=== PATIENT | male | born 1950 | race Caucasian/White ===

== ENCOUNTER 2019-02-02 07:30 | Inpatient (IN) | payer BC, OTHER ==
--- NOTE | 2019-02-01 12:39 | HP ---
HISTORY AND PHYSICAL: DATE OF ADMISSION/SURGERY: 02/09/19 DATE OF OFFICE VISIT: 01/29/19 SURGEON: Sonia Boyer MD* (dictated by RANDI Olvera). PROCEDURE: Left total knee arthroplasty. CHIEF COMPLAINT: Left knee pain. HISTORY OF PRESENT ILLNESS: Mr. Higuera is a 68-year-old gentleman with continued complaints of left knee pain. He has failed conservative treatment and elected to proceed with a left total knee arthroplasty. PAST MEDICAL HISTORY: Gout and hypertension. PAST SURGICAL HISTORY: ORIF of the right ankle. CURRENT MEDICATIONS: 1. Alba D. 2. Colchicine. 3. Meloxicam. 4. Amlodipine 5 mg a day. 5. Flonase daily. ALLERGIES: No known drug allergies. FAMILY HISTORY: Coronary artery disease, cancer and stroke. SOCIAL HISTORY: This 68-year-old gentleman lives with his . He does not smoke or use drugs, uses occasional alcohol. REVIEW OF SYSTEMS: A complete 14-point review of systems was reviewed with the patient, is all negative or noncontributory. PHYSICAL EXAMINATION GENERAL: He is well developed, well nourished, in no acute distress. VITAL SIGNS: He stands 73 inches tall, weighs 237 pounds. His blood pressure is 144/83. His heart rate is 72. HEENT: Normocephalic, atraumatic. NECK: Supple. No palpable lymph nodes. PULMONARY: Lungs are clear to auscultation bilaterally. CARDIAC: Regular rate and rhythm. Strong S1, S2. ABDOMEN: Soft, nontender, nondistended. NEUROLOGIC: He is alert and oriented x3. MUSCULOSKELETAL: Left lower extremity: The skin is intact. There are no open wounds or abrasions. There is a moderate effusion of the left knee, some tenderness along the medial and lateral joint line. He walks with an antalgic- type gait. He is able to dorsiflex and plantar flex and has intact sensation and 2+ dorsalis pedis pulse. ASSESSMENT AND PLAN: Mr. Higuera is a 68-year-old gentleman with end-stage osteoarthritis of the left knee. He has failed conservative treatment and elected to proceed with left total knee arthroplasty. The surgery is scheduled for 02/09/[address] Boyer discussed the risks and benefits of the surgery at today's visit and all of his questions were answered. He will follow up with Dr. Boyer 2 weeks after the surgery. RANDI OLVERA [id number]/CPS #: [id number] DEB
[2019-02-08] MEDS ORDERED: Buffered Lidocaine 1% SYRIN* 1 ML/SYRINGE INTRADERM ONE (13:43)
[2019-02-09] MEDS ORDERED: Tranexamic Acid 1,000 MG in NS 0.9% 50 ML* (outpatient use) IV SCH ×2
[2019-02-09] MEDS ORDERED: Famotidine IV* 10 MG/ML 2 ML (20 mg) IV ONE (06:00)
[2019-02-09] MEDS ORDERED: Gabapentin CAP(*) 300 MG PO ONE (06:00)
[2019-02-09] MEDS ORDERED: Lactated Ringers 1000 ML Bag* 1,000 ML IV SCH (06:00)
[2019-02-09] MEDS ORDERED: ceFAZolin 2 GM PREMIX in ORs 2 GM/50 ML BAG IVPB ONE (09:08)
[2019-02-09] MEDS ORDERED: Gabapentin CAP(*) 300 MG ONE (09:08)
[2019-02-09] MEDS ORDERED: Famotidine IV* 10 MG/ML 2 ML (20 mg) ONE (09:09)
[2019-02-09] MEDS ORDERED: Buffered Lidocaine 1% SYRIN* 1 ML/SYRINGE INTRADERM ONE (09:09)
[2019-02-09] MEDS ORDERED: Midazolam* 1 MG/ML 5 ML VIAL (5 MG) ONE (09:40)
[2019-02-09] MEDS ORDERED: fentaNYL* 50 MCG/ML 2 ML VIAL (100 MCG VIAL) ONE (09:40)
[2019-02-09] MEDS ORDERED: ROPIVACAINE 5 MG/ML 30 ML BTL (0.5%) ONE ×2 (10:05→10:26)
[2019-02-09] MEDS ORDERED: Lidocaine 1%* 5 ML VIAL ONE (10:05)
[2019-02-09] MEDS ORDERED: KETAMINE HCL* 50 MG/ML 10 ML VIAL ONE (12:15)
[2019-02-09] MEDS ORDERED: Ketorolac INJ* 30 MG/ML 1 ML VIAL ONE (12:24)
[2019-02-09] MEDS ORDERED: Ondansetron INJ* 2 MG/ML VIAL ONE (12:24)
[2019-02-09] MEDS ORDERED: Propofol* 10 MG/ML 20 ML BTL ONE ×2 (12:24→13:35)
[2019-02-09] MEDS ORDERED: DiMENhydriNATE IV* 50 MG/ML VIAL ONE (12:24)
[2019-02-09] MEDS ORDERED: Lidocaine 2% PF * 5 ML VIAL ONE (12:25)
[2019-02-09] MEDS ORDERED: Midazolam* 1 MG/ML 2 ML VIAL (2 MG) ONE (13:09)
[2019-02-09] MEDS ORDERED: HYDROmorphone INJ1* 1 MG/ML SYRINGE IV PRN (13:23)
[2019-02-09] MEDS ORDERED: DiMENhydriNATE IV* 50 MG/ML VIAL IV PUSH PRN (13:23)
[2019-02-09] MEDS ORDERED: oxyCODONE TAB* 5 MG TAB PO PRN (13:23)
[2019-02-09] MEDS ORDERED: Acetaminophen IV 1GM/100ML * 1,000 MG/100 ML VIAL IVPB ONE (13:23)
[2019-02-09] MEDS ORDERED: Naloxone* 0.4 MG/ML 1 ML VIAL IV PRN (13:23)
[2019-02-09] MEDS ORDERED: Gabapentin CAP(*) 100 MG PO ONE (13:24)
[2019-02-09] MEDS ORDERED: hydrALAZINE IV* 20 MG/ML VIAL ONE (13:28)
[2019-02-09] MEDS ORDERED: HYDROmorphone INJ1* 1 MG/ML SYRINGE ONE (13:42)
--- NOTE | 2019-02-09 14:30 | OP ---
Operative Report - Blank - Operative Report Date of Operation: 02/09/19 Note: PRADIP DANIELS 1950 Date of Surgery: 02/09/19 Sonia Boyer MD [employer] Advisor: Reno BRYAN did help throughout the procedure with preparation of the knee, wound retraction, manipulation of the knee, and wound closure. Anesthesiologist: Edward Lpoez MD Anesthesia Type: Spinal Preoperative Diagnosis: Left severe degenerative osteoarthritis of the knee Postoperative Diagnosis: As above Procedure Performed: Left Total Knee Arthroplasty Tourniquet time: 46 minutes Complications: None Specimen: Bone and cartilage from the left knee joint sent to pathology. Hardware Used: Cemented Kapadia and Nephew total knee hardware was used - For the femur a size 8 left oxinium legion posterior stabilized femoral component, for the tibia a size 7 left luci II tibial baseplate, for the insert a size 9mm 7 -8 posterior stabilized articular polyethylene insert, and for the patella a size 38 3-peg all poly patella. Brief History/Indication: PRADIP DANIELS was known in clinic and had a history of severe left knee pain and swelling. He failed conservative treatment with anti-inflammatories, pain pills, intra-articular injections and physical therapy. He elected to undergo left total knee arthroplasty due to continued pain and decreased quality of life. Radiographs showed severe end stage osteoarthritis of the knee with bone on bone contact. Informed consent was obtained from the patient. He understood the risks of surgery included but were not limited to: bleeding, infection, damage to nearby structures, intraoperative fracture, nerve palsy, failure of the hardware, early loosening, knee stiffness or loss of motion, anesthesia complications, stroke, heart attack , blood clot and . He wished to proceed. Intra-Operative Findings: Intraoperatively the patient was noted to have severe loss of cartilage in all 3 compartments of the knee. Description of the Procedure: PRADIP DANIELS was identified in the preanesthesia unit. His left knee was marked as the correct operative side. Informed consent was signed and placed in the chart. The patient was taken to the operating room and placed under anesthesia without complication. A andino catheter was placed. A tourniquet was placed on the left thigh. The left lower extremity was prepped and draped in the usual sterile fashion. Preoperative time-out was made to correctly identify the patient, side and site. Appropriate intraoperative antibiotics were given within one hour of incision. Tourniquet was inflated. A midline incision was made and carried sharply down to the extensor mechanism. A new 10 blade was used to make a standard medial parapatellar arthrotomy. The patella was subluxed laterally. Electrocautery was used to dissect soft tissue off the superomedial tibia to the midsagittal plane. The knee was flexed up. The anterior horn of the lateral meniscus and the ACL were sharply incised. A drill was used to enter the distal femur. The intramedullary distal femoral cutting guide was pinned on the distal femur. The oscillating saw was used to make the distal femoral cut. The external rotation guide was pinned on the distal femur and the distal femur was sized to a size 8. The size 8 multi-cutting jig was pinned on the distal femur. The oscillating saw was used to make the appropriate 4 chamfer cuts. Next the PCL was completely released. The extramedullary tibial cutting guide was pinned on the proximal tibia and the oscillating saw was used to make the proximal tibial cut perpendicular to the mechanical axis of the tibia. The bone was carefully removed. The knee was brought out into full extension. The spacer block was placed and had excellent fit with the knee in full extension. The medial and lateral ligaments were well balanced. The flexion and extension gaps were well balanced. The knee was flexed up. Lamina horse show judge was placed both medially and laterally. Any remaining meniscus was removed with electrocautery. Curved osteotome was used to remove any posterior osteophytes. The tibial tray and drop hanna were placed and confirmed a satisfactory tibial cut. The size 8 left femoral trial was impacted onto the distal femur. This trial had excellent fit and stability. The box for the posterior stabilized implant was prepared using a box cut osteotome and a reamer. Next a tibial tray trial and 9 mm insert trial was placed. The knee was taken through a range of motion and had full extension to 130 degrees of flexion. Patellofemoral tracking was satisfactory. The patella was inverted and sized to a size 38. Three peg holes were drilled through the size 38 drill guide. The trial patella was placed and the knee was taken through a range of motion. There was satisfactory patellofemoral tracking. All trials were removed. The tibia was subluxed anteriorly and sized to a size 7. The proximal tibial was prepared with a size 7 keel punch. All bony cut surfaces were irrigated with sterile saline and dried. Final implants were cemented into place starting with the tibia, followed by the femur, and last the patella. A 9 mm insert trial was placed and the knee was brought into full extension. Tourniquet was turned down and the knee was copiously irrigated with sterile saline. Electrocautery was used to obtain meticulous hemostasis. Once the cement had fully cured, the insert trial was removed. Any excess cement was removed from around the hardware and capsule. Final insert chosen was a 9 mm posterior stabilized Luci II articular insert size 7-8. Stability of the insert was checked and noted to be stable. The extensor mechanism was closed using number 1 vicryls. The rest of the incision was closed in a layered fashion using 0 and 2-0 vicryls. The skin was closed using 3-0 nylon suture. Sterile xeroform, 4x4s and webril were used to cover the incision. Ignacio wrap and cold pack were used to cover the dressings. The patients anesthesia was reversed without difficulty. He was taken to the PACU in stable condition. Intended weight-bearing will be as tolerated.
[2019-02-09] MEDS ORDERED: diPHENhydraMINE IV* 50 MG/ML 1 ml VIAL (BENADRYL) IV PRN (14:41)
[2019-02-09] MEDS ORDERED: oxyCODONE/Acetamin 5/325 MG* TAB PO PRN (14:41)
[2019-02-09] MEDS ORDERED: Acetaminophen TAB* 325 MG PO PRN (14:41)
[2019-02-09] MEDS ORDERED: Bisacodyl SUPP* 10 MG SUPP PR PRN (14:41)
[2019-02-09] MEDS ORDERED: Cyclobenzaprine TAB* 10 MG PO PRN (14:41)
[2019-02-09] MEDS ORDERED: Magnesium Hydroxide LIQ* 30 ML UDC PO PRN (14:41)
[2019-02-09] MEDS ORDERED: Morphine INJ* 2 MG/ML 1 ML SYRINGE (TWO MG - NEW SYRINGE VERSION) IV PRN (14:41)
[2019-02-09] MEDS: oxyCODONE/Acetamin 5/325 MG* TAB PO PRN ×2 (19:20→23:25)
[2019-02-09] MEDS: Docusate CAP* 100 MG PO SCH (19:23)
[2019-02-09] MEDS: Magnesium Hydroxide LIQ* 30 ML UDC PO SCH (19:28)
[2019-02-09] MEDS: ceFAZolin 1 GM ADVAN(*) 1 GM in NS 0.9% 50 ML* 50 ML IVPB SCH (19:30)
--- NOTE | 2019-02-09 20:54 | HP ---
CC: Dr. Gina Cervantes * HISTORY AND PHYSICAL: DATE OF ADMISSION: 02/09/19 DATE OF CONSULT: 02/09/19 PRIMARY CARE PROVIDER: Gina Cervantes MD. REQUESTING PHYSICIAN IN CONSULT: Dr. Sonia Boyer. ATTENDING PHYSICIAN: Dr. Arreaga * (dictated by Mono May NP). REASON FOR CONSULT: Co-medical management of hypertension. HISTORY OF PRESENT ILLNESS/HOSPITAL COURSE: I will refer you to Dr. Boyer's history and physical dictated on 02/01/19 for complete details, but in short, Mr. Higuera is a 77-year-old male with a past medical history of hypertension, systolic murmur, BPH, gout, osteoarthritis who presented to [facility] [place] on 02/09/19 for an elective left total knee replacement after failing conservative therapy. PAST MEDICAL HISTORY: 1. Systolic murmur. 2. Hypertension. 3. Osteoarthritis. 4. BPH. 5. Gout. PAST SURGICAL HISTORY: 1. Right ankle repair, 2006. HOME MEDICATIONS: 1. Amlodipine 5 mg p.o. q.a.m. 2. [facility] Allergy Relief 1 tab p.o. q.a.m. p.r.n. 3. Ibuprofen 400 mg p.o. daily p.r.n. 4. Flonase 2 spray both nares q.a.m. 5. Colchicine 1 tab p.o. b.i.d. p.r.n. ALLERGIES: LISINOPRIL. FAMILY HISTORY: Father at age 83 due to cancer. He also had a history of asthma and then diabetes. Mother is alive at age 97, has a history of heart disease. Brother is alive at age 65 and has had a stroke and abuses alcohol. Sister is alive at age 70 and has no medical conditions. SOCIAL HISTORY: The patient does not smoke. The patient does not use drugs. The patient reports daily alcohol use of 2 gin and tonics at night. The patient lives with his . The patient is independent with his ADLs. His surrogate decision maker will be his , Cinthya Devine ([phone]), in the event he cannot make decisions for herself. REVIEW OF SYSTEMS: The patient reports mild left knee pain and rates it at a 2/ 10. The patient reports slight lightheadedness. Otherwise, 14-point of review of systems was completed and all others were negative. PHYSICAL EXAMINATION GENERAL: Mr. Javier is a 68-year-old male who is sitting in a recliner. He appears stated age. He appears to be in no acute distress. VITAL SIGNS: Temp 97.5, HR 65, RR 16, O2 saturation is 97% on room air, BP is 132/74. HEENT: EOMs intact. PERRLA. Oral mucosa is moist without lesions. Posterior pharynx is clear. NECK: Full range of motion, no lymphadenopathy. RESPIRATORY: Symmetrical chest expansion. No accessory muscle use. Lungs are clear to auscultation. No rhonchi, wheezes, or rales. CV: Regular rate and rhythm. S1, S2 present. Systolic murmur noted. No rubs or gallops. EXTREMITIES: Skin is warm and smooth bilaterally. No edema. No clubbing or cyanosis. Pedal pulses are 2+ bilaterally. MUSCULOSKELETAL: The patient reports pain in the left knee. Otherwise, no pain or deformity. ABDOMEN: Soft, nontender to palpation. Bowel sounds are normoactive. NEURO: Awake, alert, and oriented x4. Motor strength is 5/5 in upper and lower extremities. SKIN: Grossly intact without lesions. DIAGNOSTIC STUDIES/LAB DATA: CBC obtained on 01/29/19: WBC 9.1, hemoglobin 16.6, hematocrit 48, and platelets 232. Chemistry obtained on 01/29/19: Sodium 139, potassium 4.6, chloride 102, carbon dioxide 31, BUN 11, creatinine 0.79. ASSESSMENT AND PLAN: Mr. Higuera is a 68-year-old male with a past medical history significant for a systolic murmur, hypertension, osteoarthritis, BPH, gout who presented to the [facility] [facility] for elective left total knee replacement. He will be placed on short stay surgical. 1. Status post left total knee replacement: Patient is postop day 0. Management per ortho. Pain medication, bowel regimen, and DVT prophylaxis has been ordered by the ortho team. 2. Systolic murmur: This is noted in patient's preop exam. It was also noted on examination. Patient is asymptomatic. I would encourage patient to follow up with his primary care and have routine echos as recommended. 3. Hypertension. Patient is on amlodipine 5 mg p.o. q.a.m., which he took this morning prior to surgery. Nurse, Cristina RN, does note that patient had a syncopal episode while working with PT this afternoon, but recovered quickly and vital signs remained stable. Given this, I will hold patient's amlodipine tomorrow. You can restart it as you deem necessary. 4. Osteoarthritis: Patient is status post left total knee replacement. Pain management has been ordered by ortho team. 5. BPH: Patient is not on any medications for his BPH. I would encourage patient to follow up with his primary care. I would also monitor patient for urinary retention once his Simmons is removed tomorrow. 6. Gout. Patient has no signs or symptoms of gout. Patient can continue his colchicine p.r.n. after discharge. 7. FEN: Diet has been ordered by the ortho team. 8. Code status: Patient is a full code. 9. DVT prophylaxis: Patient has been placed on apixaban by the ortho team. TIME SPENT: Approximately 35 minutes were spent on this consultation, greater than half the time was spent with the patient obtaining my history and performing physical exam and reviewing my plan of care. This case has been reviewed with my attending, Dr. Arreaga, who is in agreement with my plan. Thank you very much for allowing us to participate in the care of this patient. We will follow along with you. Reviewed by MONO MAY NP 02/15/19 @ 1936 [id number]/CPS #: [id number] DEB
[2019-02-09] MEDS: oxyCODONE TAB* 5 MG TAB PO PRN (22:07)
[2019-02-10] MEDS: Lactated Ringers 1000 ML Bag* 1,000 ML IV SCH ×2 (01:55→12:09)
[2019-02-10] MEDS: oxyCODONE TAB* 5 MG TAB PO PRN ×2 (01:59→06:14)
[2019-02-10] MEDS: oxyCODONE/Acetamin 5/325 MG* TAB PO PRN ×4 (04:11→17:43)
[2019-02-10] MEDS: ceFAZolin 1 GM ADVAN(*) 1 GM in NS 0.9% 50 ML* 50 ML IVPB SCH ×2 (04:12→12:09)
[2019-02-10 05:10] LABS: Hematocrit 41 % (36-46); Hemoglobin 14.2 g/dL (14.0-18.0); Platelet Count 188 10^3/uL (150-450)
[2019-02-10 05:30] LABS: BUN/Creatinine Ratio 14.3 (8-20); Calcium 8.8 mg/dL (8.6-10.3); EGFR African American 136.1 (>60); EGFR Non-African American 112.5 (>60)
[2019-02-10] MEDS ORDERED: Morphine TAB Extended Release (*) 30 MG TAB.ER PO SCH (08:00)
[2019-02-10] MEDS: Vitamin THERAPEUTIC TAB PO SCH (08:37)
[2019-02-10] MEDS: Apixaban* 2.5 MG TAB PO SCH ×2 (08:37→21:12)
[2019-02-10] MEDS: Docusate CAP* 100 MG PO SCH ×2 (08:37→21:12)
[2019-02-10] MEDS: Magnesium Hydroxide LIQ* 30 ML UDC PO SCH ×2 (08:37→21:12)
[2019-02-10] MEDS: Ondansetron INJ* 2 MG/ML VIAL IV PRN ×2 (08:46→18:41)
[2019-02-10] MEDS ORDERED: amLODIPine TAB* 5 MG PO SCH (09:00)
--- NOTE | 2019-02-10 09:34 | PN ---
Subjective Date of Service: 02/10/19 Interval History: Patient reports he developed nausea shortly after finishing his breakfast this morning. He received zofran and his nausea is feeling improved. Denies abd pain , emesis, and diarrhea. He reports he did not sleep well because of knee pain and therefore is feeling quite tired this morning. He has not gotten up to stand yet today. Of note, he reportedly experienced a syncopal event upon standing yesterday. Denies dizziness, headache, chest pain, visual changes, SOB. Objective Active Medications: Acetaminophen (Tylenol Tab*) 650 mg PO Q8H PRN PRN Reason: PAIN OR TEMPERATURE Apixaban (Eliquis*) 2.5 mg PO BID [facility] Last Admin: 02/10/19 08:37 Dose: 2.5 mg Bisacodyl (Dulcolax Supp*) 10 mg LA DAILY PRN PRN Reason: constipation Cyclobenzaprine HCl (Flexeril Tab*) 5 mg PO TID PRN PRN Reason: SPASMS Last Admin: 02/10/19 01:59 Dose: 5 mg Diphenhydramine HCl (Benadryl Iv*) 25 mg IV Q6H PRN PRN Reason: itching Docusate Sodium (Colace Cap*) 100 mg PO BID [facility] Last Admin: 02/10/19 08:37 Dose: 100 mg Cefazolin Sodium 1 gm/ Sodium (Chloride) 50 mls @ 200 mls/hr IVPB Q8H [facility] Stop: 02/10/19 12:14 Last Admin: 02/10/19 04:12 Dose: 200 mls/hr Lactated Ringer's (Lactated Ringers 1000 Ml Bag*) 1,000 mls @ 100 mls/hr IV PER RATE [facility] Last Admin: 02/10/19 01:55 Dose: 100 mls/hr Lactulose (Lactulose*) 30 ml PO Q6H PRN PRN Reason: constipation Magnesium Hydroxide (Milk Of Magnesia Liq*) 30 ml PO BID [facility] Last Admin: 02/10/19 08:37 Dose: 30 ml Magnesium Hydroxide (Milk Of Magnesia Liq*) 30 ml PO Q6H PRN PRN Reason: constipation Morphine Sulfate (Morphine Inj (Syringe))*) 2 mg IV Q2H PRN PRN Reason: PAIN Morphine Sulfate (Ms Contin(*)) 15 mg PO Q12H [facility] Multivitamins (Theragran Tab*) 1 tab PO DAILY JOE Last Admin: 02/10/19 08:37 Dose: 1 tab Ondansetron HCl (Zofran Inj*) 4 mg IV Q6H PRN PRN Reason: nausea Last Admin: 02/10/19 08:46 Dose: 4 mg Oxycodone HCl (Roxycodone Tab*) 10 mg PO Q4H PRN PRN Reason: PAIN - SEVERE Last Admin: 02/10/19 06:14 Dose: 10 mg Oxycodone/Acetaminophen (Percocet 5/325 Tab*) 1 tab PO Q4H PRN PRN Reason: PAIN Oxycodone/Acetaminophen (Percocet 5/325 Tab*) 2 tab PO Q4H PRN PRN Reason: PAIN Last Admin: 02/10/19 08:37 Dose: 2 tab Vital Signs - 8 hr 02/10/19 02/10/19 02/10/19 01:59 03:02 04:11 Temperature 99.1 F Pulse Rate 80 Respiratory 18 16 18 Rate Blood Pressure 156/66 (mmHg) O2 Sat by Pulse 94 Oximetry 02/10/19 02/10/19 02/10/19 06:14 08:37 08:38 Temperature Pulse Rate Respiratory 18 18 18 Rate Blood Pressure (mmHg) O2 Sat by Pulse Oximetry 02/10/19 09:12 Temperature 99.3 F Pulse Rate 93 Respiratory 17 Rate Blood Pressure 154/83 (mmHg) O2 Sat by Pulse 94 Oximetry Oxygen Devices in Use Now: None Appearance: White male, appears stated age, laying upright in hospital bed, appearing in NAD Eyes: No Scleral Icterus, PERRLA Ears/Nose/Mouth/Throat: Mucous Membranes Moist Neck: NL Appearance and Movements; NL JVP Respiratory: Symmetrical Chest Expansion and Respiratory Effort, - - Very minimal crackles in bilateral lung bases Cardiovascular: RRR, - - Grade II systolic murmur Abdominal: - - Abdomen soft, nontender, nondistended; no guarding or masses Extremities: No Edema, No Clubbing, Cyanosis Skin: No Rash or Ulcers, - - Skin warm, dry, intact Neurological: Alert and Oriented x 3, NL Muscle Strength and Tone Result Diagrams: 02/10/19 05:00 02/10/19 05:00 Assess/Plan/Problems-Billing Assessment: 68 yo male PMHx HTN, systolic murmur, BPH, gout is s/p L TKA. Hospital medicine consulted for comanagement of chronic medical conditions. - Patient Problems (1) Hypertension Code(s): I10 - ESSENTIAL (PRIMARY) HYPERTENSION SNOMED Code(s): 83823083 Comment: -home amlodipine previously held because of syncopal event with standing yesterday, likely orthostatic hypotension -will restart amlodipine with holding parameters for SBP<160 -continue to monitor, SBP has been in low 150s (2) Nausea Code(s): R11.0 - NAUSEA SNOMED Code(s): 907102313 Comment: -pt reported nausea this morning, improved with zofran -continue prn zofran (3) Systolic murmur Code(s): R01.1 - CARDIAC MURMUR, UNSPECIFIED SNOMED Code(s): 98054141 Comment: -known systolic murmur prior to surgery, recommended follow up with PCP (4) S/P knee replacement Code(s): Z96.659 - PRESENCE OF UNSPECIFIED ARTIFICIAL KNEE JOINT SNOMED Code(s ): 870976331 Comment: -mgmt per orthopedic surgery (5) DVT prophylaxis Code(s): DDX7824 - SNOMED Code(s): 500341338 Comment: -per orthopedic surgery, on eliquis
[2019-02-10] MEDS: Morphine TAB Extended Release (*) 15 MG TAB.ER PO SCH ×2 (10:12→20:13)
--- NOTE | 2019-02-10 10:58 | PN ---
Progress Note - Progress Note Date of Service: 02/10/19 SOAP: Subjective: []Pt seen and examined OOB in chair. Denies CP, SOB, nausea. He has mild dizziness with movement. He had a syncopal episode yesterday after change of position. Knee pain is well controlled Objective: []General: NAD, Appears well LLE: Left knee dressing CDI, thigh is soft, DF/PF intact, DP2+, sensation intact to light touch distally Calves supple and nontender without erythema, edema or palpable cords Assessment: []POD 1 sp left total knee replacement Plan: []WBAT PT/OT Eliquis 2.5 mg po BID x 30 days post op DC home tomorrow morning Vital Signs Temp 99.3 F 02/10/19 09:12 Pulse 93 02/10/19 09:12 Resp 18 02/10/19 10:12 BP 154/83 02/10/19 09:12 Pulse Ox 94 02/10/19 09:12 Intake & Output 02/09/19 02/10/19 02/10/19 18:59 06:59 18:59 Intake Total 1850 1874 320 Output Total 400 1050 Balance 1450 824 320 Weight 241 lb 12.8 oz Intake: IV Fluids 1850 980 LR 1800 980 NS 50ML, Cefazolin 2G 50 IVPB 54 ABX - CEFAZOLIN 54 Oral 840 320 Output: Simmons 400 1050 Other: # Bowel Movements 0 Laboratory Last Values Hgb 14.2 g/dL (14.0-18.0) 02/10/19 05:00 Hct 41 % (36-46) 02/10/19 05:00 Plt Count 188 10^3/uL (150-450) 02/10/19 05:00 MPV 8.0 fL (7.4-10.4) 02/10/19 05:00 Sodium 132 mmol/L (135-145) L 02/10/19 05:00 Potassium 4.0 mmol/L (3.5-5.0) 02/10/19 05:00 Chloride 99 mmol/L (101-111) L 02/10/19 05:00 Carbon Dioxide 25 mmol/L (22-32) 02/10/19 05:00 Anion Gap 8 mmol/L (2-11) 02/10/19 05:00 BUN 10 mg/dL (6-24) 02/10/19 05:00 Creatinine 0.70 mg/dL (0.67-1.17) 02/10/19 05:00 Est GFR ( Amer) 136.1 (>60) 02/10/19 05:00 Est GFR (Non-Af Amer) 112.5 (>60) 02/10/19 05:00 BUN/Creatinine Ratio 14.3 (8-20) 02/10/19 05:00 Glucose 158 mg/dL (70-100) H 02/10/19 05:00 Calcium 8.8 mg/dL (8.6-10.3) 02/10/19 05:00
[2019-02-10] MEDS: amLODIPine TAB* 5 MG PO SCH (12:09)
[2019-02-11] MEDS: oxyCODONE/Acetamin 5/325 MG* TAB PO PRN (00:06)
[2019-02-11] MEDS: oxyCODONE TAB* 5 MG TAB PO PRN ×4 (03:50→16:14)
[2019-02-11] MEDS: Ondansetron INJ* 2 MG/ML VIAL IV PRN (03:50)
[2019-02-11 05:57] LABS: Hematocrit 40 % (42-52); Hemoglobin 13.8 g/dL (14.0-18.0); Mean Platelet Volume 8.1 fL (7.4-10.4); Platelet Count 183 10^3/uL (150-450)
[2019-02-11] MEDS: Morphine TAB Extended Release (*) 15 MG TAB.ER PO SCH (07:19)
[2019-02-11] MEDS ORDERED: Scopolamine 1.5 mg* PATCH TRANSDERM ONE (08:00)
[2019-02-11] MEDS: Magnesium Hydroxide LIQ* 30 ML UDC PO SCH (08:25)
[2019-02-11] MEDS: Apixaban* 2.5 MG TAB PO SCH (08:26)
[2019-02-11] MEDS: amLODIPine TAB* 5 MG PO SCH (08:26)
[2019-02-11] MEDS: Vitamin THERAPEUTIC TAB PO SCH (08:26)
[2019-02-11] MEDS: Docusate CAP* 100 MG PO SCH (08:26)
[2019-02-11] MEDS ORDERED: amLODIPine TAB* 5 MG PO SCH (09:00)
--- NOTE | 2019-02-11 10:40 | DS ---
Orthopedic Discharge Summary - Discharge Summary Discharge to home in stable condition 02/11/19 with homecare Date of Admission:02/09/19 Date of Discharge: 02/11/19 Date of Surgery: 02/09/19 Attending Orthopedic Provider: Dr Boyer Pre-operative Diagnosis: left knee osteoarthritis Operative Procedure: left total knee arthroplasty Condition of Patient: stable History: PRADIP DANIELS is a 68 year old M with years of increasingly severe left knee pain. Patient has failed conservative management and has elected to undergo a left total knee replacement Hospital Course: PRADIP was admitted to [facility] on 02/09/19. Patient underwent a left total knee replacement without complication followed by a brief recovery in PACU and transfer to the Short Stay Surgical Unit in stable condition. POD 0 he had a syncopal episode without injury. Our hospitalist service, physical therapy and occupational therapy also participated in this patients care. Post-op day 1: patient was alert and in no acute distress. Dressing was clean, dry and intact. Operative extremity dorsiflexion and plantarflexion intact, sensation intact to light touch distally , DP2+. Post-op day two: dressing was changed, incision was clean, dry and intact. Patient was deemed to be medically and orthopedically stable for discharge home. Physical therapy goals were met. Of note his BP should be followed by home nursing post op as he did have elevated BP that was trending towards normal by the time of discharge, this could well be attributed to his amlodipine being held due to his syncopal episode. If elevated BP continues he should follow up with his PCP this week. Home Medications Medication Instructions Recorded Confirmed Type Fluticasone NASAL SPRAY 50MCG* 2 spray BOTH NARES QAM 01/29/19 02/09/19 History [Flonase NASAL SPRAY 50MCG*] [facility] Allergy Relief 1 tab PO QAM PRN 01/29/19 02/09/19 History amLODIPine TAB* [Norvasc 5 mg TAB*] 5 mg PO QAM 01/29/19 02/09/19 History Acetaminophen TAB* [Tylenol TAB*] 650 mg PO Q8H PRN tab 02/11/19 Rx Apixaban* [Eliquis*] 2.5 mg PO BID #60 tab 02/11/19 Rx Docusate CAP* [Colace Cap*] 100 mg PO BID #90 cap 02/11/19 Rx Morphine TAB Extended Rel(*) [Ms 15 mg PO 0800,2000 PRN #4 tab.er 02/11/19 Rx Contin(*)] MDD 2 oxyCODONE TAB* [Roxycodone TAB 5 10 mg PO Q4H PRN #50 tab MDD 10 02/11/19 Rx mg*] Discharge Instructions following Orthopedic Surgery: Activity: * Weight Bearing as tolerated * Continue physical therapy and occupational therapy exercises as shown * Home PT Wound care: * OK to shower on post-op day 3, no bathing, swimming, or submerging wound. * Use gentle soap, pat dry. Cover with gauze, KENNY wrap or tape. * Visiting home nurse to do wound checks. Call Orthopedic office for: * Increased drainage * Redness * Increased pain * Fever Go to ER with shortness of breath or chest pain. Diet: * Regular diet * Increase fluids and fiber to prevent constipation. * Continue to use stool softeners, call office if no bowel motion within 48 hours. Medications See Home Medication List in your packet for medications that you should take after discharge. DVT Prophylaxis: This medication increases bleeding tendency eliquis 2.5 mg by mouth every 12 hours for 30 days post op Pain Control: Oxycodone 5 mg 1-2 tabs by mouth every 4-6 hours as needed for pain. Maximum of 10 tabs per day. Hold for sedation. wean off as soon as able and hold for sedation Morphine extended release 15 mg tabs. May use 1 tab every 12 hours for severe pain. Wean off of this medication as soon as pain allows, hold for sedation. Wean off of this medication first, then off of oxycodone. Antibiotics are required prior to any dental work. FOLLOW UP: Follow up with [Merlin] Within 10-14 days, call for appointment Please call our office with any questions or concerns ([phone]) Blood pressure should be monitored by visiting nurses due to elevated values while in the hospital. If BP remains elevated, follow up with PCP within 1 week
[2019-02-11 16:45] VITALS: BP 147/71
[2019-02-14] MEDS ORDERED: Scopolamine PATCH Remove* 1 NOTE MISC PATCH OFF ONE (08:00)
== END 2019-02-11 16:45 | disposition home health service (06) | DRG 302 ==
LOC: AA 02-09 08:49 → SSU 02-09 14:41
PROVIDERS: ADMIT Orthopaedic Surgery Adult Reconstructive Orthopaedic Surgery; ATTEND Orthopaedic Surgery Adult Reconstructive Orthopaedic Surgery
PROC: 0SRD069 Replacement of Left Knee Joint with Oxidized Zirconium on Polyethylene Synthetic Substitute, Cemented, Open Approach (ICD-10-PCS; principal; 2019-02-09 11:30)
DX: M17.12 Unilateral primary osteoarthritis, left knee (principal); M10.9 Gout, unspecified; I10 Essential (primary) hypertension; M25.462 Effusion, left knee; N40.0 Benign prostatic hyperplasia without lower urinary tract symptoms; E78.5 Hyperlipidemia, unspecified; J32.0 Chronic maxillary sinusitis; H61.23 Impacted cerumen, bilateral; I35.2 Nonrheumatic aortic (valve) stenosis with insufficiency; M75.100 Unspecified rotator cuff tear or rupture of unspecified shoulder, not specified as traumatic; J30.9 Allergic rhinitis, unspecified; E66.9 Obesity, unspecified; R01.1 Cardiac murmur, unspecified; M25.762 Osteophyte, left knee; L40.0 Psoriasis vulgaris; R11.0 Nausea; R55 Syncope and collapse; Z82.49 Family history of ischemic heart disease and other diseases of the circulatory system; Z82.3 Family history of stroke; Z72.89 Other problems related to lifestyle; Z88.8 Allergy status to other drugs, medicaments and biological substances; Z82.5 Family history of asthma and other chronic lower respiratory diseases; Z83.3 Family history of diabetes mellitus; Z81.1 Family history of alcohol abuse and dependence; Z68.31 Body mass index [BMI] 31.0-31.9, adult; Z80.42 Family history of malignant neoplasm of prostate
CPT/HCPCS: 36415; 80048; 84300; 85014; 85018; 85049; A9270-GY; C1776; G8978-GP-CL; G8979-GP-CI; J0360; J0690; J1170; J1240; J1885; J2250; J2405; J2704; J2795; J3010